=== PATIENT | male | born 1980 | race Caucasian/White ===

== ENCOUNTER 2020-07-25 16:27 | Emergency (ER) | payer BC ==
[~2020-07-25] VITALS: Ht 182.9 cm; Wt 86.4 kg
[2020-07-25 16:35] VITALS: BP 128/96
== END 2020-07-25 16:59 | disposition home or self-care (01) ==
LOC: ER 16:28
DX: R51.9 Headache, unspecified (principal); Z20.828 Contact with and (suspected) exposure to other viral communicable diseases; Z72.89 Other problems related to lifestyle
CPT/HCPCS: 36415; 99282